=== PATIENT | female | born 1950 | race African-American/Black ===

== ENCOUNTER 2021-04-23 16:10 | Emergency (ER) | payer BC, OTHER ==
[2021-04-23 16:30] VITALS: BMI 32.5
[2021-04-23] MEDS ORDERED: KETOROLAC TROMETHAMINE 30 MG/1 ML VIAL IVPUSH ONE (17:46)
[2021-04-23] MEDS ORDERED: KETOROLAC TROMETHAMINE 30 MG/1 ML VIAL ONE (17:54)
[2021-04-23 18:07] VITALS: BP 145/84; PULSE 110; TEMP 98.1
[2021-04-23 18:16] LABS: BASO % 0.2 % (0-2.0); EOS % 1.2 % (0-4.5); HEMOGLOBIN 12.8 GM/dL (10.7-15.3); LYMPH % 33.7 % (8-40); MCH 28.2 pg (25.7-33.7); MCHC 34.7 g/dl (32.0-36.0); MEAN CELL VOLUME 81.3 fl (80-96); MEAN PLT VOLUME 9.5 fl (7.5-11.1); MONO % 5.7 % (3.8-10.2); NEUT % 59.2 % (42.8-82.8); PLATELET COUNT 282 10^3/uL (134-434); RBC 4.55 M/mm3 (3.60-5.2); RDW 16.2 % (11.6-15.6)
[2021-04-23 19:06] LABS: URINE APPEARANCE CLEAR; URINE COLOR YELLOW
[2021-04-23 19:07] LABS: URINE BILIRUBIN NEGATIVE (NEGATIVE); URINE GLUCOSE (UA) >1000 mg/dl (NEGATIVE); URINE KETONE 15 mg/dl (NEGATIVE); URINE LEUK ESTERASE NEGATIVE (NEGATIVE); URINE NITRITE NEGATIVE (NEGATIVE); URINE PROTEIN NEGATIVE (NEGATIVE); URINE UROBILINOGEN 0.2 mg/dL (0.2-1.0)
[2021-04-23 19:09] LABS: BLOOD UREA NITROGEN 19.3 mg/dL (7-18); CREATININE 1.3 mg/dL (0.55-1.3); GLUCOSE,RANDOM 304 mg/dL (74-106); SODIUM 132 mmol/L (136-145)
[2021-04-23 19:10] LABS: ALBUMIN 3.5 g/dl (3.4-5.0); ANION GAP 2 MMOL/L (8-16); CALCIUM 9.3 mg/dL (8.5-10.1); CHLORIDE 102 mmol/L (98-107); CO2 28 mmol/L (21-32); TOT PROT 8.5 g/dl (6.4-8.2)
[2021-04-23 19:11] LABS: ALK PHOS 105 U/L (45-117); BILIRUBIN,TOTAL 0.5 mg/dL (0.2-1); SGOT/AST 92 U/L (15-37); SGPT/ALT 33 U/L (13-61)
[2021-04-23] MEDS ORDERED: SODIUM CHLORIDE 1,000 ML IV STA (19:18)
[2021-04-23 21:34] LABS: ALBUMIN 3.5 g/dl (3.4-5.0); BLOOD UREA NITROGEN 19.2 mg/dL (7-18); CALCIUM 9.1 mg/dL (8.5-10.1); CREATININE 1.2 mg/dL (0.55-1.3); TOT PROT 7.4 g/dl (6.4-8.2)
[2021-04-23 21:35] LABS: BILIRUBIN,TOTAL 0.4 mg/dL (0.2-1)
== END 2021-04-23 22:16 | disposition home or self-care (01) ==
LOC: JER 16:10
PROC: 3E0333Z Introduction of Anti-inflammatory into Peripheral Vein, Percutaneous Approach (ICD-10-PCS; principal; 2021-04-23)
PROC: 3E0337Z Introduction of Electrolytic and Water Balance Substance into Peripheral Vein, Percutaneous Approach (ICD-10-PCS; 2021-04-23)
DX: R73.9 Hyperglycemia, unspecified (principal); M54.50 Low back pain, unspecified; Z76.0 Encounter for issue of repeat prescription
CPT/HCPCS: 36415; 80053; 81003; 85025; 99284-25